=== PATIENT | male | born 1980 | race Caucasian/White ===

== ENCOUNTER 2023-04-12 11:18 | Emergency (ER) | payer MEDICAID ==
[~2023-04-12] VITALS: Ht 180.3 cm; Wt 93.0 kg
[2023-04-12 11:30] VITALS: BP_SYST 167; PULSE 67; RESP 18; TEMP 98.3; O2SAT 97
[2023-04-12 12:16] LABS: BASOPHILS % (AUTO) 0.7 % (0.0-2.0); EOSINOPHILS # (AUTO) 0.1 K/uL (0.0-0.4); EOSINOPHILS % (AUTO) 1.6 % (0.0-4.0); HEMATOCRIT 46.1 % (36-54); HEMOGLOBIN 15.2 g/dL (14.0-18.0); LYMPHOCYTES # (AUTO) 2.2 K/uL (1.0-5.5); LYMPHOCYTES % (AUTO) 33.9 % (20.5-51.5); MEAN CORPUSCULAR HEMOGLOBIN 28 pg (27-31); MEAN CORPUSCULAR HGB CONC 33 % (32-36); MEAN CORPUSCULAR VOLUME 84 fL (79.0-98.0); MONOCYTES # (AUTO) 0.5 K/uL (0.0-1.0); MONOCYTES % (AUTO) 7.4 % (1.7-9.3); NEUTROPHILS # (AUTO) 3.7 K/uL (1.8-7.7); NEUTROPHILS % (AUTO) 56.4 % (40.0-70.0); PLATELET COUNT (AUTO) 284 K/uL (130-430); RED BLOOD CELL COUNT(AUTO) 5.46 MIL/uL (4.2-6.2); RED CELL DISTRIBUTION WIDTH 14.6 % (9.0-15.0); WHITE BLOOD COUNT (AUTO) 6.6 K/uL (4.8-10.8)
[2023-04-12 12:30] LABS: PROTHROMBIN TIME 10.1 SECS (9.5-12.5)
[2023-04-12 12:40] LABS: ALBUMIN 3.6 g/dL (3.4-4.8); CALCIUM 8.5 mg/dL (8.4-11.0); CREATININE 0.84 mg/dL (0.55-1.30); TOTAL BILIRUBIN 0.4 mg/dL (0.0-1.0); TOTAL PROTEIN, SERUM 7.3 g/dL (6.4-8.3)
[2023-04-12 13:55] VITALS: BP_SYST 167; PULSE 67; RESP 18; TEMP 98.3; O2SAT 97
== END 2023-04-12 13:54 | disposition home or self-care (01) ==
LOC: SED 11:18
DX: K62.5 Hemorrhage of anus and rectum (principal); R10.30 Lower abdominal pain, unspecified; Z79.899 Other long term (current) drug therapy
CPT/HCPCS: 36415; 76376; 80053; 82150; 83605; 83690; 85025; 85610-TC; 85730-TC; 86886; 86900; 86901; 99284

== ENCOUNTER 2024-04-15 09:19 | Emergency (ER) | payer MEDICAID, OTHER ==
[~2024-04-15] VITALS: Ht 180.3 cm; Wt 95.3 kg
[2024-04-15 09:23] VITALS: BP_SYST 137; PULSE 99; RESP 17; TEMP 98.2; O2SAT 94
[2024-04-15 10:07] LABS: ALBUMIN 3.8 g/dL (3.4-4.8); CREATININE 0.94 mg/dL (0.55-1.30); POTASSIUM 4.1 mmol/L (3.5-5.1); TOTAL BILIRUBIN 0.3 mg/dL (0.0-1.0); TOTAL PROTEIN, SERUM 7.6 g/dL (6.4-8.3)
[2024-04-15] MEDS: KETOROLAC TROMETHAMINE 30 MG VIAL IM ONE (10:15)
[2024-04-15] MEDS: CYCLOBENZAPRINE HCL 10 MG TABLET (FLEXERIL) PO ONE (10:16)
[2024-04-15] MEDS: LIDOCAINE PATCH 5% 1 EA TP ONE (10:16)
[2024-04-15] MEDS ORDERED: CYCL10TA24 PO (11:03)
[2024-04-15] MEDS ORDERED: LIDO1ADH14 TP (11:03)
[2024-04-15 11:14] VITALS: BP_SYST 143; PULSE 82; RESP 22; TEMP 98.2; O2SAT 100
== END 2024-04-15 11:10 ==
LOC: SED 09:19
DX: M54.12 Radiculopathy, cervical region (principal); R20.2 Paresthesia of skin; Z79.899 Other long term (current) drug therapy; Z79.2 Long term (current) use of antibiotics
CPT/HCPCS: 99284; 80053; 83735; 36415; 93005; 96372; J1885